=== PATIENT | male | born 1995 | race Caucasian/White ===

== ENCOUNTER 2018-02-24 12:34 | Emergency (ER) | payer OTHER ==
[2018-02-24 12:46] VITALS: BP 124/71
--- NOTE | 2018-02-24 13:49 | UC ---
Lower Extremity/Ankle HPI - HPI Summary HPI Summary: pain in left foot---much worse in the morning----could not weight bear this morning--no known injury - History of Current Complaint Chief Complaint: UCLowerExtremity Stated Complaint: FOOT PAIN Time Seen by Provider: 02/24/18 13:43 Hx Obtained From: Patient Onset/Duration: Gradual Onset, Still Present, Worse Since - past couple of days Pain Intensity: 7 Pain Scale Used: 0-10 Numeric Aggravating Factor(s): Standing, Ambulation Alleviating Factor(s): Rest, Elevation Able to Bear Weight: Yes - with pain - Allergies/Home Medications Allergies/Adverse Reactions: Allergies Allergy/AdvReac Type Severity Reaction Status Date / Time amoxicillin Allergy Hives Verified 02/24/18 12:46 PMH/Surg Hx/FS Hx/Imm Hx Previously Healthy: Yes - Surgical History Surgical History: None - Family History Known Family History: Positive: None - Social History Occupation: Employed Full-time Lives: With Family Alcohol Use: Occasionally Substance Use Type: None Smoking Status (MU): Light Every Day Tobacco Smoker Review of Systems Constitutional: Negative Skin: Negative Eyes: Negative ENT: Negative Respiratory: Negative Cardiovascular: Negative Gastrointestinal: Negative Genitourinary: Negative Motor: Negative Neurovascular: Negative Musculoskeletal: Arthralgia - left foot/heel Neurological: Negative Psychological: Negative Is Patient Immunocompromised?: No All Other Systems Reviewed And Are Negative: Yes Physical Exam Triage Information Reviewed: Yes Appearance: Well-Appearing, No Pain Distress, Well-Nourished Vital Signs: Initial Vital Signs Temp 98 F 02/24/18 12:42 Pulse 87 02/24/18 12:42 Resp 16 02/24/18 12:42 BP 124/71 02/24/18 12:42 Pulse Ox 100 02/24/18 12:42 Vital Signs Reviewed: Yes Eye Exam: Normal Eyes: Positive: Conjunctiva Clear ENT Exam: Normal ENT: Positive: Normal ENT inspection, Hearing grossly normal. Negative: TMs normal, Trismus, Muffled voice, Hoarse voice Dental Exam: Normal Neck exam: Normal Neck: Negative: Supple, Nontender, No Lymphadenopathy Respiratory Exam: Normal Respiratory: Positive: Chest non-tender, No respiratory distress Cardiovascular Exam: Normal Cardiovascular: Positive: RRR, Pulses Normal, Brisk Capillary Refill Musculoskeletal Exam: Normal Musculoskeletal: Positive: Strength Intact, ROM Intact, No Edema Neurological Exam: Normal Neurological: Positive: Alert, Muscle Tone Normal Psychological Exam: Normal Skin Exam: Normal Diagnostics - Radiology No standard instances Xray Interpretation: No Acute Changes - Patient Name: BEATA ARREOLA Medical Record# : [id number] Ordering Physician: Cande Lorenzo NP Acct.#: [id number] : 02/23/1958 Age: 60 Sex: M Location: [facility] Exam Date: 02/24/18 1308 ADM Status: REG ER Order Information: ELBOW LEFT 3+VWS Accession Number : [id number] CPT: 45126 INDICATION: LEFT elbow pain with flexion or extension following injury. COMPARISON: No relevant prior exams available on the [facility] PACS for comparison. TECHNIQUE: AP, lateral, and oblique views LEFT elbow. REPORT AND IMPRESSION: Negative for fat pad displacement to indicate effusion. Negative for fracture or malalignment. Preserved joint spaces. Small enthesophyte at the triceps tendon insertion. Mild dorsal soft tissue swelling. <Electronically signed by Jeramy Mattson MD in OV> 02/24/18 1343 Dictated By: Jeramy Mattson MD Dictated Date/ Time: 02/24/18 1343 Transcribed Date/Time: 02/24/18 1341 Copy to: CC:Cande Lorenzo NP; Diane Nixon MD; Tyrone Hernandez MD [facility] [address] [place] [address] ph [phone]) ph [phone]) ph [phone]) 1 of 1 Radiology Interpretation Completed By: ED Physician, Radiologist Lower Extremity Course/Dx - Course Course Of Treatment: cam boot, plantar exercises, follow with orthopedic MD, NSAID - Differential Dx/Diagnosis Provider Diagnoses: left foot tendonitis Discharge - Sign-Out/Discharge Documenting (check all that apply): Discharge/Admit/Transfer - Discharge Plan Condition: Stable Disposition: HOME Prescriptions: Naproxen [Naproxen 500 mg tab] 500 mg PO BID PRN #30 tab PRN Reason: Pain - Moderate Patient Education Materials: Plantar Fasciitis Exercises (GEN), Plantar Fasciitis (ED), Tendinitis (ED), R.I.C.E. Treatment (ED) Forms: *Work Release Referrals: Shubham Velasquez MD [Medical Doctor] - 3 Days - Billing Disposition and Condition Condition: STABLE Disposition: Home
--- NOTE | 2018-02-24 14:25 | RAD ---
HISTORY: Plantar fasciitis COMPARISONS: None VIEWS: 3, Frontal, lateral, and oblique views of the left foot FINDINGS: BONE DENSITY: Normal. BONES: There is no displaced fracture. JOINTS: There is no arthropathy. ALIGNMENT: There is no dislocation. SOFT TISSUES: Unremarkable. OTHER FINDINGS: None. IMPRESSION: NO ACUTE OSSEOUS INJURY. IF SYMPTOMS PERSIST, RECOMMEND REPEAT IMAGING.
== END 2018-02-24 14:27 | disposition home or self-care (01) ==
LOC: UCEAST 12:34
DX: M77.52 Other enthesopathy of left foot and ankle (principal); Z88.0 Allergy status to penicillin; F17.220 Nicotine dependence, chewing tobacco, uncomplicated
CPT/HCPCS: 99213; G0463